=== PATIENT | male | born 1970 | race Caucasian/White ===

== ENCOUNTER → 2020-04-22 | Outpatient (CLI) | payer BC ==
--- NOTE | 2020-04-22 11:26 | NM ---
EXAMINATION TYPE: NM stress cardiolite complete DATE OF EXAM: 04/22/2020 COMPARISON: NONE HISTORY: Other forms of dyspnea TECHNIQUE: After the intravenous administration of 9.63 mCi Tc 99m Sestamibi - Rest images obtained 45 minutes post injection. The patient exercised using a YASIR protocol and 1 minute prior to peak exercise was injected with 26.2 mCi Tc 99m Sestamibi - Stress images obtained 30 minutes post injecti on. FINDINGS: There is diminished radiotracer along the inferior wall on both rest and stress images. This may be a rtifact from the diaphragm. No stress-induced ischemic changes evident. Wall motion has some mild dys kinesia. Ejection fraction of 55% is normal. IMPRESSION: 1. Suggestive of a diaphragm artifact along the inferior wall. No stress-induced ischemic changes are evident. Wall motion is mild dyskinesia.
--- NOTE | 2020-04-22 14:45 | EST ---
EXERCISE STRESS AGE: 50 SEX: M HT: 5'6" WT: 170 lbs. PROTOCOL: Cardiolite Lewis STAGE: IV DURATION OF EXERCISE: 10:00 HEART RATE REST: 80 BLOOD PRESSURE REST: 163/105 MAXIMUM HEART RATE ACHIEVED: 183 MAXIMUM BLOOD PRESSURE: 183/96 85% MPHR: 145 100% MPHR: 171 METS: 11.7 INDICATIONS: Dyspnea. CLINICAL INFORMATION: Heart rate 80, pressure is 160/105 mmHg. Baseline EKG showed sinus mechanism. The patient exercised on the treadmill according to Lewis protocol for a total of 10 minutes and achieved 11.7 METS. Max heart rate was 150/83, which is about which is about 107% of maximum predicted heart rate. Maximum blood pressure was 183/96 mmHg. Clinically, the patient did not have any symptoms of chest pain or chest discomfort and the EKG did not show any significant ST or T-wave abnormalities concerning for ischemia. CONCLUSION: 1. Excellent exercise tolerance. 2. Normal EKG in response to exercise. 3. Essentially normal stress test for the patient. MMODL / IJN: [id number] /
== END | disposition home or self-care (01) ==
LOC: RADNMMAIN 08:14
PROVIDERS: ATTEND Family Medicine
DX: G24.9 Dystonia, unspecified (principal)
CPT/HCPCS: 93017; 78452; A9500